=== PATIENT | female | born 1995 | race Caucasian/White ===

== ENCOUNTER 2018-04-06 14:30 | Emergency (ER) | payer MEDICAID, OTHER ==
[2018-04-06 16:05] LABS: URINE BLOOD (Dip) POC 1+ (NEGATIVE); URINE GLUCOSE (Dip) POC Negative (NEGATIVE); URINE KETONES (Dip) POC Negative (NEGATIVE); URINE LEUKOCYTE EST (Dip) POC 2+ (NEGATIVE); URINE NITRITE (Dip) POC Negative (NEGATIVE); URINE TOTAL PROTEIN POC Negative (NEGATIVE)
[2018-04-06] MEDS: IBUPROFEN 600 MG TAB PO (16:21)
[2018-04-06] MEDS: LORAZEPAM 0.5 MG TAB PO (16:21)
== END 2018-04-06 17:23 | disposition home or self-care (01) ==
LOC: FTE 14:30
DX: F41.9 Anxiety disorder, unspecified (principal); N39.0 Urinary tract infection, site not specified
CPT/HCPCS: 81003; 81025; 93005; 99284-25

== ENCOUNTER 2018-07-13 16:09 | Emergency (ER) | payer SELFPAY, MEDICAID ==
[2018-07-13 17:37] LABS: URINE BLOOD (Dip) POC 1+ (NEGATIVE); URINE GLUCOSE (Dip) POC Negative (NEGATIVE); URINE KETONES (Dip) POC Negative (NEGATIVE); URINE LEUKOCYTE EST (Dip) POC Trace (NEGATIVE); URINE NITRITE (Dip) POC Negative (NEGATIVE); URINE TOTAL PROTEIN POC Negative (NEGATIVE)
== END 2018-07-13 19:10 | disposition home or self-care (01) ==
LOC: FTE 16:09
DX: N30.90 Cystitis, unspecified without hematuria (principal); R10.2 Pelvic and perineal pain
CPT/HCPCS: 74018; 81003; 81025; 99283-25

== ENCOUNTER 2018-08-09 18:51 | Emergency (ER) | payer MEDICAID ==
[2018-08-09] MEDS: IBUPROFEN 600 MG TAB PO (22:11)
== END 2018-08-09 22:13 | disposition home or self-care (01) ==
LOC: E/R 18:51
DX: R07.9 Chest pain, unspecified (principal)
CPT/HCPCS: 71045; 81025; 93005; 99284-25

== ENCOUNTER 2019-05-10 20:48 | Emergency (ER) | payer MEDICAID | END 2019-05-10 23:17 | disposition left against medical advice (07) | LOC: FTE 20:48 | DX: Z53.21 Procedure and treatment not carried out due to patient leaving prior to being seen by health care provider (principal) ==